=== PATIENT | male | born 1965 | race Two or more races ===

== ENCOUNTER 2022-05-23 07:07 | Outpatient (CLI) | payer OTHER | END 2022-05-23 07:13 | disposition home or self-care (01) | LOC: NUCLEAR 07:07 | PROVIDERS: ATTEND Internal Medicine Cardiovascular Disease | DX: I25.119 Atherosclerotic heart disease of native coronary artery with unspecified angina pectoris (principal); I70.0 Atherosclerosis of aorta; I11.9 Hypertensive heart disease without heart failure | CPT/HCPCS: 78452; 93017; A9500; J0153 ==